=== PATIENT | female | born 1950 | race Caucasian/White ===

== ENCOUNTER → 2019-02-01 19:14 | Emergency (ER) | payer MEDICARE ==
[~2019-02-01 19:14] MED LIST: Tetan/Diph/Pertus SYR(Tdap)* 0.5 ML SYR(BOOSTRIX) use SYR IM ONE; traMADol TAB* 50 MG PO ONE
--- NOTE | 2019-02-01 19:45 | ED ---
Head Injury - HPI Summary HPI Summary: Patient is a 68 y/o female who presents to the ER via EMS for a fall witnessed by daughter. Patient missed a step and tumbled down 19 steps. She denies LOC, N/ V, chest/back/abdominal pain, SOB, and dizziness. She complains of head pain on the top, mild neck pain stretching across the shoulders, a small laceration on the back of head, and a LLE abrasion. She rates the pain 5/10 in severity. Patient is not on blood thinners. She has already taken four tablets of acetemenophen/hydrocodone today. Patient denies history of DM and HTN, but has peripheral vascular disease, sleep apnea, arthritis, and GERD. PSHx of bilateral knee replacements in 2005 and 2010 and gallbladder and naval hernia repairs. She denies alcohol and substance use but is a former smoker. Last tetanus shot is unknown. - History Of Current Complaint Chief Complaint: EDFall Stated Complaint: FALL PER EMS Time Seen by Provider: 02/01/19 19:21 Hx Obtained From: Patient, Family/Psychology Technician Mechanism Of Injury: Fall From A Standing Position - Tumble down 19 steps Onset of Pain: Post Accident Severity Currently: Mild Pain Intensity: 5 Pain Scale Used: 0-10 Numeric Location of Head Injury: Occipital Location: Diffuse Associated Signs And Symptoms: Neck Pain, Other: - Laceration to back of the head, denies back/chest/abdominal pain - Allergies/Home Medications Allergies/Adverse Reactions: Allergies Allergy/AdvReac Type Severity Reaction Status Date / Time No Known Allergies Allergy Verified 08/24/16 06:46 PMH/Surg Hx/FS Hx/Imm Hx Endocrine/Hematology History: Denies: Hx Diabetes Cardiovascular History: Reports: Hx Peripheral Vascular Disease - POOR CIRCULATION TO HANDS AND FEET Denies: Hx Hypertension, Hx Pacemaker/ICD, Other Cardiovascular Problems/ Disorders Respiratory History: Reports: Hx Sleep Apnea GI History: Reports: Hx Gastroesophageal Reflux Disease Denies: Other GI Disorders Musculoskeletal History: Reports: Hx Arthritis Denies: Other Musculoskeletal History Sensory History: Reports: Hx Contacts or Glasses - GLASSES, Hx Hearing Aid - BILAT Opthamlomology History: Reports: Hx Contacts or Glasses - GLASSES Neurological History: Denies: Other Neuro Impairments/Disorders Psychiatric History: Reports: Hx Anxiety - R/T PAIN, Hx Depression Denies: Hx Panic Disorder - Cancer History Hx Chemotherapy: No Hx Radiation Therapy: No - Surgical History Surgery Procedure, Year, and Place: BILATERAL KNEE REPLACEMENTS, 2006, 2011, GALL BLADDER AND NAVAL HERNIA REAPIRS, 1999, [place], BREAST IMPLANTS 1978 AND REMOVED 2013,, [facility];. L4-L5 SURGERY 07/15/2015 Hx Anesthesia Reactions: No Infectious Disease History: No Infectious Disease History: Denies: Traveled Outside the [place] in Last 30 Days - Family History Known Family History: Positive: Other Family History: [place] - Social History Alcohol Use: None Substance Use Type: Reports: None Hx Tobacco Use: Yes Smoking Status (MU): Former Smoker Amount Used/How Often: PACK A DAY Have You Smoked in the Last Year: No Review of Systems Negative: Chest Pain Negative: Shortness Of Breath Negative: Abdominal Pain, Vomiting, Nausea Positive: Other - Mild neck pain across shoulders Positive: Bruising, Other - Laceration to back of head and abrasian to LLE Neurological: Other - No dizziness or LOC Positive: Headache - Top of head All Other Systems Reviewed And Are Negative: Yes Physical Exam - Summary Physical Exam Summary: Appearance: Well appearing, no pain distress Skin: warm, dry, reflects adequate perfusion, swelling and one cm abrasion on LLE Head/face: abrasion of occipital part of the head, mild bleeding but no active bleeding in room Eyes: EOMI, SAIDA ENT: normal Neck: supple, non-tender Respiratory: CTA, breath sounds present Cardiovascular: RRR, pulses symmetrical Abdomen: non-tender, soft Musculoskeletal: swelling of LLE, strength/ROM intact Neuro: normal, sensory motor intact, A&Ox3 GCS: 15 Triage Information Reviewed: Yes Vital Signs On Initial Exam: Initial Vitals Temp Pulse Resp BP Pulse Ox 98.3 F 58 16 151/73 97 02/01/19 19:25 02/01/19 19:25 02/01/19 19:25 02/01/19 19:25 02/01/19 19:25 Vital Signs Reviewed: Yes Diagnostics - Vital Signs Vital Signs Temp Pulse Resp BP Pulse Ox 02/01/19 19:25 98.3 F 58 16 151/73 97 - Laboratory Lab Statement: Any lab studies that have been ordered have been reviewed, and results considered in the medical decision making process. - Radiology LLE XR Radiology Interpretation Completed By: ED Physician Summary of Radiographic Findings: Negative. Pending radiologist official report. - CT c-spine CT Interpretation Completed By: Radiologist Summary of CT Findings: 1. Multilevel degenerative disc and facet disease. 2. No acute fracture, subluxation, or aggressive osseous lesion. 3. Multiple thyroid nodules. Dr. Zuniga has reviewed this radiology report. head CT Interpretation Completed By: Radiologist Summary of CT Findings: No acute intracranial abnormality. Dr. Zuniga has reviewed this radiology report. Re-Evaluation - Re-Evaluation First Eval Re-Evaluation Time: 21:14 Change: Improved Comment: Discussed results with patient and plan for discharge. Patient understands and agrees. Head Injury Course/Dx Course Of Treatment: Patient is a 68 y/o female who presents to the ER via EMS for a fall witnessed by daughter. She complains of head pain on the top, mild neck pain stretching across the shoulders, a small laceration on the back of head, and a LLE abrasion. During the ED course, patient received tetanus shot and Tramadol. LLE x-ray is negative. CT C-spine reveals multilevel degenerative disc and facet disease, no acute fracture, subluxation, or aggressive osseous lesion, and multiple thyroid nodules. CT head reveals no acute intracranial abnormality. Patient will be discharged home with diagnoses of head injury, neck sprain, and left leg contusion. She understands and agrees with this plan. - Diagnoses Differential Diagnosis/HQI/PQRI: Contusion, Other - head injury Provider Diagnoses: Head injury, Neck sprain, Contusion of left leg Discharge - Sign-Out/Discharge Documenting (check all that apply): Patient Departure - Discharge Patient Received Moderate/Deep Sedation with Procedure: No - Discharge Plan Condition: Stable Disposition: HOME Patient Education Materials: Head Injury (ED), Leg Pain (ED), Neck Pain (ED) Referrals: Amarilis KENNY,Janett Layton [Primary Care Provider] - 3 Days () Additional Instructions: Return to ER if changing or worsening symptoms. Follow-up with PCP in 3 days. - Billing Disposition and Condition Condition: STABLE Disposition: Home - Attestation Statements Document Initiated by Scribe: Yes Documenting Scribe: Hieu Kidd Provider For Whom Yissel is Documenting (Include Credential): Carl Zuniga MD Scribe Attestation: Hieu Dumont, scribed for Carl Zuniga MD on 02/01/19 at 2148. Scribe Documentation Reviewed: Yes Provider Attestation: The documentation as recorded by the scribe, Hieu Kidd accurately reflects the service I personally performed and the decisions made by me, Carl Zuniga MD Status of Scribe Document: Viewed
[2019-02-01 21:29] VITALS: BP 140/67
== END | disposition home or self-care (01) ==
LOC: ED 19:14
DX: S13.9XXA Sprain of joints and ligaments of unspecified parts of neck, initial encounter (principal); S80.12XA Contusion of left lower leg, initial encounter; W10.9XXA Fall (on) (from) unspecified stairs and steps, initial encounter; I73.9 Peripheral vascular disease, unspecified; G47.30 Sleep apnea, unspecified; F41.9 Anxiety disorder, unspecified; F32.9 Major depressive disorder, single episode, unspecified; E04.1 Nontoxic single thyroid nodule; M50.30 Other cervical disc degeneration, unspecified cervical region; Z87.891 Personal history of nicotine dependence
CPT/HCPCS: 70450; 72125; 90471; 90715; 99283; A9270-GY

== ENCOUNTER 2019-02-19 15:05 | Emergency (ER) | payer MEDICARE ==
--- NOTE | 2019-02-19 16:40 | UC ---
Laceration HPI - HPI Summary HPI Summary: 68 y/o female presents to the urgent care c/o February 01 left leg injury- fell down 19 stairs. Laceration has started bleeding. It was superficial, did not require stitches. - History Of Current Complaint Chief Complaint: UCLowerExtremity Stated Complaint: LT LEG INJURY Time Seen by Provider: 02/19/19 16:39 Hx Obtained From: Patient Pain Intensity: 2 - Allergies/Home Medications Allergies/Adverse Reactions: Allergies Allergy/AdvReac Type Severity Reaction Status Date / Time No Known Allergies Allergy Verified 02/19/19 15:19 Home Medications: Home Medications Cholecalciferol (Vitamin D3) [D3-2000] 2,000 units PO DAILY 02/19/19 [History Confirmed 02/19/19] Hydrocodone/Acetaminophen [Hydrocodone-Acetamin 5-325 mg] 2 tab PO BID 02/19/19 [History Confirmed 02/19/19] PMH/Surg Hx/FS Hx/Imm Hx - Surgical History Surgical History: Yes Surgery Procedure, Year, and Place: BILATERAL KNEE REPLACEMENTS, 2005, 2010, GALL BLADDER AND NAVAL HERNIA REAPIRS, 1999, [place], BREAST IMPLANTS 1978 AND REMOVED 2013,, [facility];. L4-L5 SURGERY 07/15/2015. hysterectomy. right wrist carpal tunnel surgery - Family History Known Family History: Positive: Other Family History: [place] - Social History Alcohol Use: None Substance Use Type: None Smoking Status (MU): Former Smoker Amount Used/How Often: PACK A DAY Have You Smoked in the Last Year: No When Did the Patient Quit Smoking/Using Tobacco: 1982 - Immunization History Most Recent Influenza Vaccination: 05/2015 Most Recent Tetanus Shot: 2014 Most Recent Pneumonia Vaccination: 06/2015 Physical Exam Vital Signs: Initial Vital Signs Temp 98.1 F 02/19/19 15:09 Pulse 58 02/19/19 15:09 Resp 18 02/19/19 15:09 BP 143/68 02/19/19 15:09 Pulse Ox 95 02/19/19 15:09 Laceration Course/Dx - Differential Dx - Laceration/Wound Differental Diagnoses: Abscess, Cellulitis, Laceration, Puncture Wound - Diagnosis Provider Diagnosis: Cellulitis of left lower leg Discharge - Sign-Out/Discharge Documenting (check all that apply): Patient Departure - d/c home All imaging exams completed and their final reports reviewed: No Studies - Discharge Plan Condition: Stable Disposition: HOME Prescriptions: Bacitracin OINTMENT* 1 applic TOPICAL BID #1 tube Sulfamethox/Trimethoprim DS* [Bactrim DS 800/160 TAB*] 1 tab PO BID #20 tab Patient Education Materials: Cellulitis (ED) Referrals: Amarilis KENNY,Janett Layton [Primary Care Provider] - 3 Days Additional Instructions: 1-Please take Bactrim PO as directed full course of Antibiotic. Please take yogurts w/ probiotics or culturelle to protect your GI system 2- If redness and swelling doubles in size beyond what was demarcated after 48 hrs of taking antibiotic and fever develops please go to the ER immediately. 3-Avoid standing for long periods of time or flexing your foot, keep it elevated and keep wound clean and dry. Please continue taking Furosemide PO as directed by your PCP. 4-Please F/u with your PCP in 3 days to make sure symptoms are improving and further evaluation and treatment. 5- Your BP is elevated today. please decrease salt in your diet, monitor BP and if it continues to be elevated please f/u with your PCP for further management. 6- Wound culture sent to lab you will be notified of any abnormal result - Billing Disposition and Condition Condition: STABLE Disposition: Home
[2019-02-19 17:26] VITALS: BP 140/78
--- NOTE | 2019-02-20 21:09 | UC ---
- Progress Note Progress Note: 02/20/2019 Wound culture: negative for MRSA, negative for S. Aureus Final sensitivity reports still pending No change Lauren Elikns PA-C Course/Dx - Diagnoses Provider Diagnoses: Cellulitis of left lower leg Discharge - Sign-Out/Discharge Documenting (check all that apply): Post-Discharge Follow Up All imaging exams completed and their final reports reviewed: No Studies - Discharge Plan Condition: Stable Disposition: HOME Prescriptions: Bacitracin OINTMENT* 1 applic TOPICAL BID #1 tube Sulfamethox/Trimethoprim DS* [Bactrim DS 800/160 TAB*] 1 tab PO BID #20 tab Patient Education Materials: Cellulitis (ED) Referrals: Amarilis KENNY,Janett Layton [Primary Care Provider] - 3 Days Additional Instructions: 1-Please take Bactrim PO as directed full course of Antibiotic. Please take yogurts w/ probiotics or culturelle to protect your GI system 2- If redness and swelling doubles in size beyond what was demarcated after 48 hrs of taking antibiotic and fever develops please go to the ER immediately. 3-Avoid standing for long periods of time or flexing your foot, keep it elevated and keep wound clean and dry. Please continue taking Furosemide PO as directed by your PCP. 4-Please F/u with your PCP in 3 days to make sure symptoms are improving and further evaluation and treatment. 5- Your BP is elevated today. please decrease salt in your diet, monitor BP and if it continues to be elevated please f/u with your PCP for further management. 6- Wound culture sent to lab you will be notified of any abnormal result - Billing Disposition and Condition Condition: STABLE Disposition: Home
== END 2019-02-19 18:05 | disposition home or self-care (01) ==
LOC: UCEAST 15:05
DX: L03.116 Cellulitis of left lower limb (principal); S89.92XA Unspecified injury of left lower leg, initial encounter; Z87.891 Personal history of nicotine dependence; W10.8XXA Fall (on) (from) other stairs and steps, initial encounter; Y92.9 Unspecified place or not applicable
CPT/HCPCS: 87070; 87205; 87640; 87641; 99212; G0463